=== PATIENT | male | born 1985 | race American Indian/Alaskan Native ===

== ENCOUNTER 2017-10-31 12:21 | Emergency (ER) | payer SELFPAY ==
[~2017-10-31] VITALS: Ht 177.8 cm; Wt 90.7 kg
[2017-10-31] MEDS ORDERED: IOPAMIDOL 300MG/ML 100 ML INFUS..BTL IV ONE (13:45)
[2017-10-31] MEDS ORDERED: KETOROLAC TROME10 MG PO (14:10)
[2017-10-31] MEDS ORDERED: FLOMAX0.4 MG PO (14:10)
[2017-10-31] MEDS ORDERED: PROMETHAZINE HC25 M1 PO (14:11)
== END 2017-10-31 14:47 | disposition home or self-care (01) ==
LOC: FSED 12:21
DX: R10.11 Right upper quadrant pain (principal); R11.0 Nausea; N20.1 Calculus of ureter
CPT/HCPCS: 74177; 80048; 80076; 81003; 85025; 99284; Q9967